=== PATIENT | female | born 1995 | race Caucasian/White ===

== ENCOUNTER 2017-01-27 18:15 | Emergency (ER) | payer SELFPAY ==
--- NOTE | 2017-01-27 19:11 | ED.PDOC ---
History of Present Illness - General Chief Complaint: Trauma Stated Complaint: knee pain, left Time Seen by Provider: 01/27/17 18:46 Source: patient, RN notes reviewed, Vital Signs reviewed Exam Limitations: no limitations - History of Present Illness Initial Comments: Patient reports that she fell off the porch and when she landed her L knee felt like it gave out. She had surgery on that knee about 18 months ago and is concerned. Timing/Duration: 24 hours Severity: moderate Improving Factors: immobilization, rest Worsening Factors: movement Associated Symptoms: denies symptoms Allergies/Adverse Reactions: Allergies NO KNOWN ALLERGY Allergy (Verified 01/27/17 18:50) Home Medications: Ambulatory Orders NK [NK] 01/27/17 Review of Systems - Review of Systems Constitutional: States: no symptoms reported Respiratory: States: no symptoms reported Cardiology: States: no symptoms reported Gastrointestinal/Abdominal: States: no symptoms reported Musculoskeletal: States: see HPI, joint pain - L knee, joint swelling - L knee Skin: States: no symptoms reported Neurological: States: no symptoms reported. Denies: numbness, paresthesia, tingling, weakness Past Medical History (General) - Patient Medical History Hx Asthma: No Surgical History: other - Vaccination History Hx Tetanus, Diphtheria Vaccination: No Hx Influenza Vaccination: No Hx Pneumococcal Vaccination: No Immunizations Up to Date: Yes - Social History Hx Tobacco Use: No Hx Alcohol Use: No Hx Substance Use: No Hx Substance Use Treatment: No Hx Depression: No - Activities of Daily Living Hospice Agency (if applicable):: None - Female History Patient is a Female of Child Bearing Age (10 -59 yrs old): No Patient : No Family Medical History - Family History Mother Family History: Unknown Physical Exam - Physical Exam General Appearance: Alert, Comfortable, No apparent distress, Well Developed, Well Groomed, Well Hydrated, Well Nourished Cardiovascular/Chest: normal peripheral pulses Peripheral Pulses: dorsalis pedis,right: 2+, dorsalis pedis,left: 2+ Extremity: swelling, other - L knee - decreased ROM due to pain, +joint effusion , tender along joint line and medial ligament Neurologic: no motor/sensory deficits, alert, normal mood/affect, oriented x 3 Skin Exam: normal color, warm/dry Lymphatic: no adenopathy Progress - EKG/XRAY/CT XRAY: knee - No acute changes Departure - Departure Clinical Impression: Left knee sprain Time of Disposition: 19:48 Disposition: Discharge to Home or Self Care Condition: Good Departure Forms: ED Discharge - Pt. Copy, Patient Portal Self Enrollment Diet: resume usual diet Activity: increase activity as tolerated Home Medications: Ambulatory Orders NK [NK] 01/27/17 Additional Instructions: Rest, Ice and Elevation If not improving in a week or if worsening follow up with your Orthopedist.
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
[2017-01-27 20:02] VITALS: BP 132/64; O2SAT 98
[2017-01-27 20:04] VITALS: TEMP 98
== END 2017-01-27 20:05 | disposition home or self-care (01) ==
LOC: ER 18:15
DX: S83.92XA Sprain of unspecified site of left knee, initial encounter (principal); W17.89XA Other fall from one level to another, initial encounter

== ENCOUNTER 2017-02-05 23:29 | Emergency (ER) | payer SELFPAY ==
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
--- NOTE | 2017-02-06 01:01 | RAD ---
EXAM DESCRIPTION: Knee, left 2 or More Views CLINICAL HISTORY: 21 years Female KNEE PAIN COMPARISON: None. TECHNIQUE: Three views of the left knee. FINDINGS: No acute fractures or dislocations are identified. No osseous destructive lesions. Postsurgical changes are visualized in the knee joint from cruciate ligament repair. IMPRESSION: No acute osseous abnormality is identified. Electronically signed by: Samuel Jules MD 02/06/2017 1:00 AM NUCLEAR MEDICINE TECHNICIAN
[2017-02-06 01:43] VITALS: BP 137/70
[2017-02-06 01:45] VITALS: TEMP 98.3; O2SAT 98
== END 2017-02-06 01:46 | disposition home or self-care (01) ==
LOC: ER 23:29
DX: S83.412A Sprain of medial collateral ligament of left knee, initial encounter (principal); X58.XXXA Exposure to other specified factors, initial encounter; Y92.89 Other specified places as the place of occurrence of the external cause

== ENCOUNTER 2017-08-27 10:49 | Emergency (ER) | payer BC ==
[2017-08-27 11:01] VITALS: TEMP 98.4
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
[2017-08-27 12:46] VITALS: BP 123/63; O2SAT 97
== END 2017-08-27 12:46 | disposition home or self-care (01) ==
LOC: ER 10:49
DX: M79.1 Myalgia (principal); Z87.891 Personal history of nicotine dependence

== ENCOUNTER 2018-03-11 12:26 | Emergency (ER) | payer BC ==
[2018-03-11 12:47] VITALS: BP 128/81; TEMP 99.2; O2SAT 96
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
[2018-03-11] MEDS ORDERED: KETOROLAC TROMETHAMINE INJ 60 MG/2 ML VIAL IM ONE (13:04)
[2018-03-11] MEDS ORDERED: PROMETHAZINE HCL INJ 25 MG/ML VIAL IM ONE (13:04)
== END 2018-03-11 13:35 | disposition home or self-care (01) ==
LOC: ER 12:26
DX: J02.9 Acute pharyngitis, unspecified (principal)
CPT/HCPCS: J1885; J2550